=== PATIENT | male | born 1960 | race Caucasian/White ===

== ENCOUNTER → 2016-07-07 | Outpatient (CLI) | payer BC ==
--- NOTE | 2016-07-08 11:02 | XR ---
EXAMINATION TYPE: XR finger LT DATE OF EXAM ORDERED: 07/07/2016 3:59 PM HISTORY: [id number]. COMPARISON: None. FINDINGS: There is a 2.2 mm radiopaque foreign body in the medial aspect of the distal phalanx of th e left fifth finger. No osseous abnormality is seen. IMPRESSION: FOREIGN BODY DESCRIBED.
== END | disposition home or self-care (01) ==
LOC: RADXRYALE 15:49
PROVIDERS: ATTEND Family Medicine
DX: S60.457A Superficial foreign body of left little finger, initial encounter (principal)
CPT/HCPCS: 25505; 96361; 96374; 96375; 99284

== ENCOUNTER 2019-06-17 10:19 | Day surgery (SDC) | payer OTHER ==
[2019-06-13 13:02] VITALS: BMI 24.3
[~2019-06-17 10:19] MED LIST: LACTATED RINGERS 1,000 ML IV SCH; LIDOCAINE 1% 20 ML VIAL (10MG/ML) FOR IV START INTRADERMA PRN
[2019-06-17] MEDS ORDERED: PROPOFOL 10 MG/ML 20 ML VIAL IV ONE (12:18)
--- NOTE | 2019-06-17 12:41 | P.PCN ---
Date of Procedure: 06/17/19 Description of Procedure: BRIEF HISTORY: Patient is a pleasant 58-year-old male presenting for outpatient colonoscopy for screening for malignant neoplasm colon. No prior colonoscopies reported. No change in bowel habits, blood work abdominal pain. PROCEDURE PERFORMED: Colonoscopy. PREOPERATIVE DIAGNOSIS: Screening for malignant neoplasm in the colon, no prior colonoscopies. ESTIMATED BLOOD LOSS: Minimal. IV sedation per Anesthesia. PROCEDURE: After informed consent was obtained, the patient, was brought into the endoscopy unit. IV sedation was administered by Anesthesia under continuous monitoring. Digital rectal examination was normal. Initially the Olympus CF-190 flexible video colonoscope was then inserted in the rectum, gradually advanced into the cecum without any difficulty. Careful examination was performed as the scope was gradually being withdrawn. Ileocecal valve and the appendiceal orifice were visualized and appeared normal. Prep was excellent. Mucosa of the cecum, ascending colon, transverse colon, descending colon, sigmoid colon, and rectum appeared normal. Retroflexion was performed in the rectum and no lesions were seen, low-grade internal hemorrhoids seen. The patient tolerated the procedure well. IMPRESSION: Normal-appearing colon from rectum to cecum. RECOMMENDATIONS: Findings of this examination were discussed with the patient and his . Okay to resume diet. Okay to resume medications. Would recommend repeat colonoscopy in 10 years for screening unless signs or symptoms develop sooner which warrants further evaluation.
[2019-06-17 12:47] VITALS: PULSE 57
[2019-06-17 12:58] VITALS: BP 110/76; RESP 17
== END 2019-06-17 13:45 | disposition home or self-care (01) ==
LOC: ORWHC2ENDO 10:19
PROVIDERS: ATTEND Internal Medicine
DX: Z12.11 Encounter for screening for malignant neoplasm of colon (principal); K64.8 Other hemorrhoids
CPT/HCPCS: J2704; G0121